=== PATIENT | female | born 1935 | race Caucasian/White ===

== ENCOUNTER → 2017-05-05 | Outpatient (CLI) | payer OTHER ==
[~2017-05-05] MED LIST: ASPIRIN81 M2 PO; CALCIUM + D; ELIQUIS5 MG PO; EVISTA60 M1 PO; EVISTA60 MG; FLOVENT7.9 GM INH; FOSAMAX; LASIX20 MG PO; LIPITOR40 MG PO; LOPRESSOR PO; LORTAB 10-5001 EACH PO; MULTI VITAMIN1 EACH PO; MULTI-VITAMIN1 TAB; NORCO 10-325 TA1 TAB PO; NORCO1 TAB 10/3 PO; PRAVASTATIN SOD40 MG PO; PRESERVISION SO1 CAP PO; PRILOSEC PO; SYNTHROID; SYNTHROID PO; TRIAMTERENE PO; TRIAMTERENE-HC1 EACH PO; ZOCOR
--- NOTE | ~2017-05-05 | NM4 ---
[facility] A Service of [facility] RADIOLOGY TEXT RESULTS PATIENT: ASTON AMATO LOCATION: [facility] : 37 UNIT #: [id number] AGE: [address]: Elie Henao MD SEX: F ORDER DR: [id number] [id number] [facility]. [place], [place] [address] [id number] O MR#: [id number] Acc #: [id number] NAME: ASTON AMATO. : 1935 SEX: F STUDY DATE/TIME: 05/05/2017 9:15 UNIT: [facility] ROOM: STUDY DESCRIPTION: AL Bone or Joint 3 Phase Study Attending Physician: Elie Henao M.D. Referring Physician: Elie Henao M.D. Ordering Physician: Elie Henao M.D. Primary Care Physician: Doc Zepeda III, M.D. MEDICAL IMAGING REPORT This report is preliminary unless electronic signature is present EXAM Three-phase bone scan. HISTORY 81-year-old female complains of right knee giving out. Pain lateral side of knee. 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 COMPARISON There are no correlative images available. TECHNIQUE Three-phase bone scan was performed centered over the knees following the intravenous administration of 29.7 mCi technetium 99m MDP. FINDINGS The examination demonstrates symmetric flow to the knees. Immediate blood-pool imaging also demonstrates symmetric uptake. Delayed-phase imaging demonstrates a photopenic area within both knees but more prominent on the right, compatible with knee arthroplasties. The history provided states only right total knee arthroplasty. No abnormal uptake identified about the femoral or tibial component to suggest loosening. IMPRESSION Normal three-phase bone scan of the knees. No findings to suggest loosening or periprosthetic fracture or infection of the right total knee arthroplasty. Imaging features on the delayed-phase images suggest the patient may have had a left total knee arthroplasty but this is difficult to confirm on bone scan alone. Patient's conventional radiographs were not directly available for comparison. Dictated by... [facility] A Service of [facility] RADIOLOGY TEXT RESULTS PATIENT: ASTON AMATO LOCATION: [facility] : 37 UNIT #: [id number] AGE: [address]: Elie Henao MD SEX: F ORDER DR: Som Chavez M.D. THIS IS AN ELECTRONICALLY VERIFIED REPORT Som Chavez M.D. at 05/06/2017 2:05 PM REY/pamela TD: 05/05/2017 21:35 JOB #: [id number] MEDICAL IMAGING REPORT Page 1 of 1 COPY
== END | disposition home or self-care (01) ==
LOC: CNUC 08:36
DX: M25.561 Pain in right knee (principal)
CPT/HCPCS: 78315; A9503